=== PATIENT | female | born 2000 | race Caucasian/White ===

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

== ENCOUNTER 2020-03-10 16:53 | Emergency (ER) | payer BC, OTHER ==
[2020-03-10 17:45] LABS: Bilirubin Negative (Negative); Blood, Urine Trace (Negative); Glucose, Urine (Dipstick) Negative (Negative); Leukocyte Negative (Negative); Nitrite Negative (Negative); Protein, Urine (Dipstick) Negative (Neg-Trace)
[2020-03-10 17:48] LABS: Pregnancy Test - Urine (BHCG) Negative (Negative); Pregu Control Background? CLEAR/WHITE (CLR/WHITE); Pregu Control Bar Appear? YES (CONTROL BAR); Specific Gravity 1.015 (1.002-1.036)
[2020-03-10 17:49] LABS: Clarity Hazy (Clear)
[2020-03-10 17:53] LABS: Bacteria/HPF 1+ HPF (None Seen); RBC/HPF 0-3 HPF (0-3); WBC/HPF 0-3 HPF (0-3)
[2020-03-10 18:16] LABS: #Basophils 0.1 thou/uL (0.0-0.2); #Eosinphils 0.3 thou/uL (0.0-0.7); #Lymphocytes 3.3 thou/uL (1.20-3.40); #Monocytes 1.1 thou/uL (0.11-0.59); #Neutrophils 7.2 thou/uL (1.40-6.50); %Basophils 0.6 % (0.0-1.0); %Eosinophils 2.8 % (0.0-10.0); %Lymphocytes 27.5 % (28.0-48.0); %Monocytes 9.1 % (0.0-4.0); %Neutrophils 60.1 % (31.0-61.0); Mean Corpuscular HGB CONC 31.2 g/dL (32.0-36.0); Mean Corpuscular Hemoglobin 28.3 pg (25.0-35.0); Mean Corpuscular Volume 90.9 fL (78.0-98.0); Mean Platelet Volume 6.4 fL (7.4-10.4); Platelet Count 338 thou/uL (130-400); RBC Distribution Width 12.3 % (11.5-14.5); Red Blood Cell (RBC) Count 4.57 mill/uL (4.00-5.20)
[2020-03-10 18:28] LABS: ALT (SGPT) 12 U/L (8-55); AST (SGOT) 14 U/L (5-34); Albumin 4.2 g/dL (3.5-5.0); Alkaline Phosphatase 78 U/L (40-100); Anion Gap 19 mmol/L (10-20); BUN (Urea Nitrogen) 7 mg/dL (7.0-18.7); Bilirubin, Total 0.7 mg/dL (0.2-1.2); Calc. Creatinine Clearance 0 mL/min (70-130); Calcium 8.7 mg/dL (7.8-10.44); Carbon Dioxide 20 mmol/L (22-29); Chloride 105 mmol/L (98-107); Estimated GFR-MDRD 89; Globulin 3.6 g/dL (2.4-3.5); Glucose 89 mg/dL (70-105); Lipase 26 U/L (8-78); Potassium 3.6 mmol/L (3.5-5.1); Protein, Total 7.8 g/dL (6.0-8.3); Sodium 140 mmol/L (136-145)
--- NOTE | 2020-03-10 18:41 | RAD ---
EXAM: CHEST ONE VIEW HISTORY: Coughing blood, sore throat. COMPARISON: 12/10/2019 FINDINGS: The cardiac silhouette and pulmonary vasculature is within normal limits. The lungs are clear. The os seous structures are intact. Chest is stable compared to prior study. IMPRESSION: No acute cardiopulmonary process.
[2020-03-12 11:55] LABS: SARS-CoV-2 MS2 Positive; SARS-CoV-2 N Gene Negative; SARS-CoV-2 S Gene Negative; SARS-CoV-2 orf1ab Negative
== END 2020-03-10 19:25 | disposition home or self-care (01) ==
LOC: MADERS 16:53
DX: R50.9 Fever, unspecified (principal); K21.9 Gastro-esophageal reflux disease without esophagitis; F41.9 Anxiety disorder, unspecified; F31.9 Bipolar disorder, unspecified; F17.290 Nicotine dependence, other tobacco product, uncomplicated; Z20.828 Contact with and (suspected) exposure to other viral communicable diseases
CPT/HCPCS: 71045; 80053; 81003; 81015; 81025; 83605; 83690; 85025; 87086; 87635; U0003

== ENCOUNTER 2022-10-30 21:07 | Emergency (ER) | payer BC ==
[~2022-10-30 21:07] MED LIST: Iopamidol 370 76% 100 ML VIAL ONE
[2022-10-30] MEDS ORDERED: Ondansetron PF 4 MG/2 ML Vial ONE (21:29)
[2022-10-30] MEDS ORDERED: Sodium Chloride 0.9% 1,000 ML ONE (21:29)
[2022-10-30] MEDS ORDERED: Morphine 4 MG/ML VIAL ONE (21:29)
[2022-10-30 21:30] LABS: #Basophils 0.1 thou/uL (0.0-0.2); #Eosinphils 0.5 thou/uL (0.0-0.7); #Lymphocytes 3.9 thou/uL (1.20-3.40); #Monocytes 0.7 thou/uL (0.11-0.59); #Neutrophils 4.9 thou/uL (1.40-6.50); %Lymphocytes 38.8 % (21.0-51.0); %Monocytes 7.2 % (0.0-10.0); %Neutrophils 48.1 % (42.0-75.0); Hemoglobin 11.6 g/dL (12.0-16.0); Mean Corpuscular HGB CONC 33.1 g/dL (32.0-36.0); Mean Corpuscular Hemoglobin 27.8 pg (27.0-31.0); Mean Corpuscular Volume 83.9 fl (78.0-98.0); Mean Platelet Volume 6.2 fL (7.4-10.4); Platelet Count 343 10x3/uL (130-400); RBC Distribution Width 12.4 % (11.5-14.5); Red Blood Cell (RBC) Count 4.18 mill/uL (4.20-5.40); White Blood Cell (WBC) Count 10.1 10x3/uL (4.8-10.8)
[2022-10-30 21:55] LABS: ALT (SGPT) 14 U/L (8-55); AST (SGOT) 14 U/L (5-34); Albumin 4.2 g/dL (3.5-5.0); Alkaline Phosphatase 64 U/L (40-110); Anion Gap 17 mmol/L (10-20); BUN (Urea Nitrogen) 7 mg/dL (7.0-18.7); Bilirubin, Total 0.4 mg/dL (0.2-1.2); Calc. Creatinine Clearance 0 mL/min (70-130); Calcium 9.1 mg/dL (7.8-10.44); Carbon Dioxide 22 mmol/L (22-29); Chloride 107 mmol/L (98-107); Estimated GFR 119; Glucose 90 mg/dL (70-105); Lipase 37 U/L (8-78); Potassium 3.9 mmol/L (3.5-5.1); Protein, Total 7.2 g/dL (6.0-8.3); Sodium 142 mmol/L (136-145)
[2022-10-30 21:55] LABS: Bilirubin Negative (Negative); Blood, Urine Negative (Negative); Clarity Clear (Clear); Glucose, Urine (Dipstick) Negative (Negative); Ketone, Urine Negative (Negative); Leukocyte Negative (Negative); Nitrite Negative (Negative); Protein, Urine (Dipstick) Negative (Neg-Trace); Urobilinogen 0.2 mg/dL (Less than 2)
[2022-10-30 21:58] LABS: Specific Gravity, Urine 1.003 (1.002-1.036)
[2022-10-30 22:30] LABS: BHCG - Serum Negative (NEGATIVE); Pregs Control Background? CLEAR/WHITE (CLR/WHITE); Pregs Control Bar Appear? YES (CONTROL BAR)
== END 2022-10-30 23:12 | disposition home or self-care (01) ==
LOC: MADERS 21:07
DX: I88.0 Nonspecific mesenteric lymphadenitis (principal); K21.9 Gastro-esophageal reflux disease without esophagitis; F17.290 Nicotine dependence, other tobacco product, uncomplicated
CPT/HCPCS: 74177; 80053; 81003; 83690; 83735; 84703; 85025; 96374; 96375; J2270; J2405; J7050; Q9967

== ENCOUNTER 2022-11-20 18:16 | Emergency (ER) | payer OTHER, BC ==
[2022-11-20 18:46] LABS: #Basophils 0.1 thou/uL (0.0-0.2); #Eosinphils 0.4 thou/uL (0.0-0.7); #Lymphocytes 3.7 thou/uL (1.20-3.40); #Monocytes 0.5 thou/uL (0.11-0.59); #Neutrophils 3.6 thou/uL (1.40-6.50); %Basophils 1.4 % (0.0-1.0); %Lymphocytes 44.9 % (21.0-51.0); %Monocytes 5.9 % (0.0-10.0); %Neutrophils 42.7 % (42.0-75.0); Hemoglobin 11.9 g/dL (12.0-16.0); Mean Corpuscular HGB CONC 33.4 g/dL (32.0-36.0); Mean Corpuscular Hemoglobin 27.9 pg (27.0-31.0); Mean Corpuscular Volume 83.3 fl (78.0-98.0); Mean Platelet Volume 6.2 fL (7.4-10.4); Platelet Count 324 10x3/uL (130-400); RBC Distribution Width 11.9 % (11.5-14.5); Red Blood Cell (RBC) Count 4.28 mill/uL (4.20-5.40); White Blood Cell (WBC) Count 8.3 10x3/uL (4.8-10.8)
[2022-11-20 18:49] LABS: BHCG - Serum Negative (NEGATIVE); Pregs Control Background? CLEAR/WHITE (CLR/WHITE); Pregs Control Bar Appear? YES (CONTROL BAR)
[2022-11-20 18:51] LABS: PTT 27.9 sec (22.9-36.1)
[2022-11-20 18:59] LABS: ALT (SGPT) 18 U/L (8-55); AST (SGOT) 18 U/L (5-34); Albumin 4.3 g/dL (3.5-5.0); Alcohol Less than 10 mg/dL (Less than 10); Alkaline Phosphatase 65 U/L (40-110); Anion Gap 14 mmol/L (10-20); BUN (Urea Nitrogen) 6 mg/dL (7.0-18.7); Bilirubin, Total 0.8 mg/dL (0.2-1.2); Calc. Creatinine Clearance 0 mL/min (70-130); Calcium 8.8 mg/dL (7.8-10.44); Carbon Dioxide 21 mmol/L (22-29); Chloride 107 mmol/L (98-107); Estimated GFR 112; Globulin 3.1 g/dL (2.4-3.5); Glucose 91 mg/dL (70-105); Lipase 25 U/L (8-78); Potassium 3.6 mmol/L (3.5-5.1); Protein, Total 7.4 g/dL (6.0-8.3); Sodium 138 mmol/L (136-145)
[2022-11-20 19:14] LABS: Bilirubin Negative (Negative); Blood, Urine Negative (Negative); Glucose, Urine (Dipstick) Negative (Negative); Ketone, Urine Negative (Negative); Leukocyte Negative (Negative); Nitrite Negative (Negative); Protein, Urine (Dipstick) Negative (Neg-Trace); Urobilinogen 0.2 mg/dL (Less than 2)
[2022-11-20 19:15] LABS: Clarity Clear (Clear)
[2022-11-20] MEDS ORDERED: Orphenadrine Citrate 60 MG/2 ML VIAL ONE (19:23)
[2022-11-20] MEDS ORDERED: Sodium Chloride 0.9% 1,000 ML ONE (19:23)
[2022-11-20] MEDS ORDERED: Ketorolac Tromethamine 30 MG/ML VIAL ONE (19:23)
[2022-11-20] MEDS ORDERED: Ondansetron ODT 4 MG TAB ONE (19:23)
[2022-11-20] MEDS ORDERED: traMADol HCl 50 MG TAB ONE (20:26)
== END 2022-11-20 20:47 | disposition home or self-care (01) ==
LOC: MADERS 18:16
DX: S29.012A Strain of muscle and tendon of back wall of thorax, initial encounter (principal); S16.1XXA Strain of muscle, fascia and tendon at neck level, initial encounter; S20.211A Contusion of right front wall of thorax, initial encounter; F17.290 Nicotine dependence, other tobacco product, uncomplicated; V49.40XA Driver injured in collision with unspecified motor vehicles in traffic accident, initial encounter; Y92.410 Unspecified street and highway as the place of occurrence of the external cause
CPT/HCPCS: 70450; 71260; 72125; 74177; 80053; 80307; 81003; 83605; 83690; 84703; 85025; 85610; 85730; 93005; 96361; 96374; 96375; J1885; J2360; J7050; Q0162; Q9967

== ENCOUNTER 2022-12-29 12:17 | Emergency (ER) | payer BC ==
[2022-12-29 12:41] LABS: Bilirubin Negative (Negative); Blood, Urine Moderate (Negative); Clarity Slightly Cloudy (Clear); Glucose, Urine (Dipstick) Negative (Negative); Ketone, Urine Negative (Negative); Leukocyte Small (Negative); Nitrite Negative (Negative); Protein, Urine (Dipstick) 100 mg/dL (Neg-Trace)
[2022-12-29 12:45] LABS: Specific Gravity, Urine 1.023 (1.002-1.036)
[2022-12-29 12:50] LABS: Bacteria/HPF 3+ HPF (None Seen); RBC/HPF Greater than 50 HPF (0-3); WBC/HPF 21-50 HPF (0-3)
[2022-12-29 13:10] LABS: #Basophils 0.1 thou/uL (0.0-0.2); #Eosinphils 0.3 thou/uL (0.0-0.7); #Monocytes 0.5 thou/uL (0.11-0.59); #Neutrophils 5.7 thou/uL (1.40-6.50); %Basophils 0.7 % (0.0-1.0); %Eosinophils 3.1 % (0.0-10.0); %Lymphocytes 31.4 % (21.0-51.0); %Monocytes 5.5 % (0.0-10.0); %Neutrophils 59.2 % (42.0-75.0); Hemoglobin 11.6 g/dL (12.0-16.0); Mean Corpuscular Hemoglobin 29.4 pg (27.0-31.0); Mean Platelet Volume 7.5 fL (7.4-10.4); Platelet Count 260 10x3/uL (130-400); RBC Distribution Width 12.8 % (11.5-14.5); Red Blood Cell (RBC) Count 3.95 mill/uL (4.20-5.40); White Blood Cell (WBC) Count 9.7 10x3/uL (4.8-10.8)
[2022-12-29 13:21] LABS: Pregnancy Test - Urine (BHCG) Negative (Negative); Pregu Control Background? CLEAR/WHITE (CLR/WHITE); Pregu Control Bar Appear? YES (CONTROL BAR)
[2022-12-29 13:24] LABS: Specific Gravity 1.023 (1.002-1.036)
[2022-12-29 13:31] LABS: ALT (SGPT) 10 U/L (8-55); AST (SGOT) 11 U/L (5-34); Alkaline Phosphatase 70 U/L (40-110); Anion Gap 13 mmol/L (10-20); BUN (Urea Nitrogen) 7 mg/dL (7.0-18.7); Bilirubin, Total 0.5 mg/dL (0.2-1.2); Calc. Creatinine Clearance 0 mL/min (70-130); Calcium 8.5 mg/dL (7.8-10.44); Carbon Dioxide 23 mmol/L (22-29); Chloride 106 mmol/L (98-107); Estimated GFR 105; Globulin 2.8 g/dL (2.4-3.5); Glucose 92 mg/dL (70-105); Lipase 41 U/L (8-78); Magnesium 1.8 mg/dL (1.6-2.6); Potassium 3.4 mmol/L (3.5-5.1); Protein, Total 6.8 g/dL (6.0-8.3); Sodium 139 mmol/L (136-145)
[2022-12-29] MEDS ORDERED: cefTRIAXone (ROCEPHIN) 2 GM VIAL ONE (13:33)
[2022-12-29] MEDS ORDERED: Sodium Chloride 0.9% 1,000 ML ONE (13:33)
[2022-12-29] MEDS ORDERED: Sodium Chloride 0.9% 100 ML ONE (13:33)
[2022-12-29] MEDS ORDERED: Ondansetron PF 4 MG/2 ML Vial ONE (13:33)
[2022-12-29] MEDS ORDERED: Ketorolac Tromethamine 30 MG/ML VIAL ONE (13:33)
[2022-12-29] MEDS ORDERED: Potassium Chloride 20 MEQ TAB ONE (13:46)
[2022-12-30 15:16] LABS: Chlamydia by PCR, EndoCx Swab Not Detected (NotDetected); GC by PCR, EndoCx Swab Not Detected (NotDetected)
== END 2022-12-29 15:29 | disposition home or self-care (01) ==
LOC: MADERS 12:17
DX: N10 Acute pyelonephritis (principal); K59.00 Constipation, unspecified; E87.6 Hypokalemia; D64.9 Anemia, unspecified; K21.9 Gastro-esophageal reflux disease without esophagitis; F17.290 Nicotine dependence, other tobacco product, uncomplicated
CPT/HCPCS: 74177; 80053; 81003; 81015; 81025; 83605; 83690; 83735; 85025; 87077; 87086; 87186; 87480; 87491; 87510; 87591; 87660; 94760; 96361; 96365; 96375; J0696; J1885; J2405; J3490; J7050

== ENCOUNTER 2023-05-10 09:17 | Emergency (ER) | payer BC ==
[2023-05-10] MEDS ORDERED: Lactated Ringer's 2,000 ML ONE (09:57)
[2023-05-10] MEDS ORDERED: Ondansetron PF 4 MG/2 ML Vial ONE (09:57)
[2023-05-10 10:18] LABS: #Basophils 0.1 thou/uL (0.0-0.2); #Eosinphils 0.2 thou/uL (0.0-0.7); #Lymphocytes 1.9 thou/uL (1.20-3.40); #Monocytes 0.4 thou/uL (0.11-0.59); #Neutrophils 5.2 thou/uL (1.40-6.50); %Basophils 0.9 % (0.0-1.0); %Eosinophils 2.9 % (0.0-10.0); %Lymphocytes 24.2 % (21.0-51.0); %Monocytes 5.1 % (0.0-10.0); %Neutrophils 66.9 % (42.0-75.0); Mean Corpuscular HGB CONC 33.2 g/dL (32.0-36.0); Mean Corpuscular Hemoglobin 29.8 pg (27.0-31.0); Mean Corpuscular Volume 89.6 fl (78.0-98.0); Mean Platelet Volume 7.4 fL (7.4-10.4); Platelet Count 293 10x3/uL (130-400); RBC Distribution Width 12.7 % (11.5-14.5); Red Blood Cell (RBC) Count 4.02 mill/uL (4.20-5.40); White Blood Cell (WBC) Count 7.8 10x3/uL (4.8-10.8)
[2023-05-10 10:36] LABS: ALT (SGPT) 7 U/L (8-55); AST (SGOT) 12 U/L (5-34); Albumin 4.1 g/dL (3.5-5.0); Alkaline Phosphatase 50 U/L (40-110); Anion Gap 14 mmol/L (10-20); BUN (Urea Nitrogen) 6 mg/dL (7.0-18.7); Bilirubin, Total 0.9 mg/dL (0.2-1.2); Calc. Creatinine Clearance 0 mL/min (70-130); Calcium 8.7 mg/dL (7.8-10.44); Carbon Dioxide 20 mmol/L (22-29); Chloride 108 mmol/L (98-107); Estimated GFR 125; Globulin 2.7 g/dL (2.4-3.5); Glucose 95 mg/dL (70-105); Lipase 20 U/L (8-78); Potassium 3.9 mmol/L (3.5-5.1); Protein, Total 6.8 g/dL (6.0-8.3); Sodium 138 mmol/L (136-145)
[2023-05-10 10:37] LABS: BHCG - Serum POSITIVE (NEGATIVE); Pregs Control Background? CLEAR/WHITE (CLR/WHITE); Pregs Control Bar Appear? YES (CONTROL BAR)
[2023-05-10 11:26] LABS: Bilirubin Negative (Negative); Blood, Urine Negative (Negative); Clarity Cloudy (Clear); Glucose, Urine (Dipstick) Negative (Negative); Ketone, Urine 40 mg/dL (Negative); Leukocyte Negative (Negative); Nitrite Negative (Negative); Protein, Urine (Dipstick) Negative (Neg-Trace); Specific Gravity, Urine 1.015 (1.005-1.030); Urobilinogen 0.2 mg/dL (Less than 2); pH, Urine 6.5 (5.0-9.0)
[2023-05-10 11:32] LABS: Bacteria/HPF 4+ HPF (None Seen); CAUTI Indications for Culture Pregnancy; RBC/HPF 0-3 HPF (0-3); WBC/HPF 0-3 HPF (0-3)
[2023-05-10 11:33] LABS: Urine Culture Reflex Yes Yes
== END 2023-05-10 12:19 | disposition home or self-care (01) ==
LOC: MADERS 09:17
DX: O21.9 Vomiting of pregnancy, unspecified (principal); O99.891 Other specified diseases and conditions complicating pregnancy; R10.32 Left lower quadrant pain; R82.71 Bacteriuria; O99.331 Smoking (tobacco) complicating pregnancy, first trimester; F17.290 Nicotine dependence, other tobacco product, uncomplicated; Z3A.01 Less than 8 weeks gestation of pregnancy
CPT/HCPCS: 76815; 80053; 81001; 83690; 84702; 84703; 85025; 86850; 86900; 86901; 87077; 87086; 96361; 96374; J2405; J7120

== ENCOUNTER 2023-06-28 03:05 | Emergency (ER) | payer BC ==
[2023-06-28] MEDS ORDERED: Ondansetron ODT 4 MG TAB ONE (03:46)
[2023-06-28] MEDS ORDERED: diphenhydrAMINE 50 MG/ML VIAL ONE (03:48)
[2023-06-28] MEDS ORDERED: Lorazepam 1 MG TAB ONE (04:44)
== END 2023-06-28 05:59 | disposition home or self-care (01) ==
LOC: MADERS 03:05
DX: O99.342 Other mental disorders complicating pregnancy, second trimester (principal); F41.9 Anxiety disorder, unspecified; F30.9 Manic episode, unspecified; O99.612 Diseases of the digestive system complicating pregnancy, second trimester; K21.9 Gastro-esophageal reflux disease without esophagitis; O99.332 Smoking (tobacco) complicating pregnancy, second trimester; F17.290 Nicotine dependence, other tobacco product, uncomplicated; Z3A.14 14 weeks gestation of pregnancy
CPT/HCPCS: 96372; 99283; J1200; Q0162

== ENCOUNTER 2024-10-22 22:32 | Emergency (ER) | payer BC ==
[2024-10-22] MEDS ORDERED: diphenhydrAMINE 50 MG/ML VIAL ONE (23:02)
[2024-10-22] MEDS ORDERED: Dexamethasone 10 MG/ML VIAL ONE (23:02)
[2024-10-22] MEDS ORDERED: Metoclopramide HCl 10 MG (2 mL) VIAL ONE (23:03)
[2024-10-22] MEDS ORDERED: Ibuprofen 600 MG TAB ONE (23:03)
[2024-10-22] MEDS ORDERED: Sodium Chloride 0.9% 1,000 ML ONE (23:03)
[2024-10-22] MEDS ORDERED: Acetaminophen 325 MG TAB ONE (23:03)
[2024-10-23 00:26] LABS: Pregnancy Test - Urine (BHCG) Negative (Negative); Pregu Control Background? CLEAR/WHITE (CLR/WHITE); Pregu Control Bar Appear? YES (CONTROL BAR); Specific Gravity 1.011 (1.002-1.036)
== END 2024-10-23 01:04 | disposition home or self-care (01) ==
LOC: MADERS 22:32
DX: B34.9 Viral infection, unspecified (principal); R51.9 Headache, unspecified; F17.290 Nicotine dependence, other tobacco product, uncomplicated
CPT/HCPCS: 71046; 81025; 87081; 87428; 87430; 96365; 96375; J1100; J1200; J2765; J7030

== ENCOUNTER 2025-06-27 08:29 | Emergency (ER) | payer BC, OTHER, SELFPAY | END 2025-06-27 09:47 | disposition home or self-care (01) | LOC: MADERS 08:29 | DX: J06.9 Acute upper respiratory infection, unspecified (principal); B34.9 Viral infection, unspecified; F17.290 Nicotine dependence, other tobacco product, uncomplicated | CPT/HCPCS: 71046; 87081; 87428; 87430; 99283 ==

== ENCOUNTER 2025-07-08 04:48 | Emergency (ER) | payer SELFPAY ==
[2025-07-08] MEDS ORDERED: Lidocaine Viscous Sol 2% 15 ml UD Cup ONE (05:22)
== END 2025-07-08 05:30 | disposition home or self-care (01) ==
LOC: MADERS 04:48
DX: J02.9 Acute pharyngitis, unspecified (principal); F17.290 Nicotine dependence, other tobacco product, uncomplicated
CPT/HCPCS: 87081; 87430; 99283

== ENCOUNTER 2025-09-05 06:08 | Emergency (ER) | payer SELFPAY | END 2025-09-05 07:06 | disposition home or self-care (01) | LOC: MADERS 06:08 | DX: S71.151A Open bite, right thigh, initial encounter (principal); Z23 Encounter for immunization; F17.290 Nicotine dependence, other tobacco product, uncomplicated; Y04.1XXA Assault by human bite, initial encounter | CPT/HCPCS: 90471 ==